=== PATIENT | female | born 1965 ===

== ENCOUNTER 2024-09-25 07:07 | Outpatient (CLI) | payer OTHER ==
[2024-09-25 07:43] LABS: PH,URINE 5.5 (5.0-8.0); URINE APPEARANCE Clear; URINE BILIRRUBIN Negative (NEGATIVE); URINE BLOOD Negative; URINE COLOR Yellow; URINE GLUCOSE Negative (NEGATIVE); URINE KETONE Negative (NEGATIVE); URINE LEUKOCYTE Small; URINE NITRATE Negative; URINE PROTEIN Negative (NEGATIVE); URINE UROBILINOGEN 0.2 E.U./dl
[2024-09-25 07:44] LABS: URINE BACTERIA 69.2 uL (0.0-1933); URINE EPITHELIAL CELLS 6.9 uL (0.0-38.8); URINE RBC 7.6 uL (0.0-20.8); URINE WBC 45.2 uL (0.0-23.2)
[2024-09-25 08:10] LABS: HEMATOCRIT 37.6 % (36.0-45.00); HEMOGLOBIN 12.3 g/dL (12.0-15.00); MEAN CORPUSCULAR HEMOGLOBIN 27.2 pg (27.00-32.0); MEAN CORPUSCULAR HGB CONC 32.8 g/dl (32.0-36.0); PLATELET COUNT 248 K/uL (150-450); RED BLOOD COUNT 4.52 M/uL (4.00-6.00); RED CELL DISTRIBUTION WIDTH 14.3 % (11.5-14.5)
[2024-09-25 08:48] LABS: URINE CAST 0.15 uL (0.0-1.40)
[2024-09-25 09:03] LABS: ALBUMIN 3.8 gm/dL (3.4-5.0); BILIRUBIN TOTAL 1.39 mg/dL (0.3-1.2); CHOL HDL RATIO 2.3 (0-5.0); CREATININE SERUM 0.75 mg/dL (0.55-1.02); GFR 79.65; GLOBULINA 3.6 G/DL (2.4-3.5); POTASSIUM 4.47 mEq/L (3.5-5.1); T4 FREE 0.95 NG/ML (0.76-1.46); TOTAL PROTEIN 7.4 gm/dL (6.4-8.2); TSH 1.19 uIU/mL (0.358-3.74)
[2024-09-25 09:17] LABS: VITAMIN D3 25 HYDROXY 23.44 ng/ml (30-120)
== END 2024-09-25 07:08 | disposition home or self-care (01) ==
LOC: LAB 07:07
DX: E11.9 Type 2 diabetes mellitus without complications (principal); N18.2 Chronic kidney disease, stage 2 (mild); E78.00 Pure hypercholesterolemia, unspecified; R30.0 Dysuria; R19.5 Other fecal abnormalities; E55.9 Vitamin D deficiency, unspecified; D51.9 Vitamin B12 deficiency anemia, unspecified; E03.8 Other specified hypothyroidism; D64.89 Other specified anemias; Z11.3 Encounter for screening for infections with a predominantly sexual mode of transmission

== ENCOUNTER 2024-09-26 14:54 | Outpatient (CLI) | payer OTHER ==
[2024-09-26 15:30] LABS: ob NEGATIVE (NEGATIVE)
== END 2024-09-26 14:56 | disposition home or self-care (01) ==
LOC: LAB 14:54
DX: E11.9 Type 2 diabetes mellitus without complications (principal); N18.2 Chronic kidney disease, stage 2 (mild); E78.00 Pure hypercholesterolemia, unspecified; R30.0 Dysuria; R19.5 Other fecal abnormalities; D51.9 Vitamin B12 deficiency anemia, unspecified; D64.89 Other specified anemias; E03.9 Hypothyroidism, unspecified; Z11.3 Encounter for screening for infections with a predominantly sexual mode of transmission